=== PATIENT | female | born 1950 | race Caucasian/White ===

== ENCOUNTER 2017-11-18 08:57 | Day surgery (SDC) | payer MEDICARE, BC ==
[2017-11-17 09:14] VITALS: BMI 39.4
[~2017-11-18 08:57] MED LIST: INDOMETHACIN 50MG SUPPOSITORY RECTAL ONE; LACTATED RINGERS 1,000 ML IV SCH
[2017-11-18 09:41] VITALS: RESP 18; TEMP 98
[2017-11-18] MEDS ORDERED: LACTATED RINGERS 1,000 ML IV ONE ×2 (09:41)
[2017-11-18] MEDS: LEVOFLOXACIN 500MG-D5W PMX 500 MG in DEXTROSE/WATER 1 100ML.BAG IVPB ONE ×2 (09:56→12:00)
[2017-11-18] MEDS ORDERED: PROPOFOL 10 MG/ML 20 ML VIAL IV ONE (12:10)
[2017-11-18] MEDS ORDERED: fentaNYL (PF) 50 MCG/ML 2 ML AMP ONE (12:10)
[2017-11-18] MEDS ORDERED: MIDAZOLAM 2 MG/2 ML VIAL ONE (12:10)
[2017-11-18] MEDS ORDERED: LIDOCAINE 1% INJ 10MG/ML (20 ML MDV) ONE (12:10)
[2017-11-18] MEDS ORDERED: GLYCOPYRROLATE 0.2 MG/ML 2 ML VIAL ONE (12:10)
[2017-11-18] MEDS ORDERED: IOHEXOL 300 MG/ML 50 ML BOTTLE MISCELLANE ONE (12:34)
--- NOTE | 2017-11-18 12:36 | P.PCN ---
Date of Procedure: 11/18/17 Procedure(s) Performed: Brief history: Patient is a 67 year-old pleasant lady scheduled for an ERCP as part of evaluation of abdominal pain for the last 2 days' duration. 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 The last ERCP was done in March 2016. The patient has been maintained on Actigall 300 mg twice daily for almost 2 years. Procedure performed: ERCP with CBD stone extraction Preoperative diagnoses: Abdominal pain/history of recurrent CBD stones IV sedation per anesthesia: Procedure: After informed consent was obtained from the patient and after the risks benefits and complications including bleeding perforation and pancreatitis explained in detail the patient was brought into the endoscopy unit. The patient was placed in prone position and IV conscious sedation was administered by anesthesia under continuous monitoring. The Olympus side-viewing duodenoscope was then inserted into the mouth and esophagus intubated without any difficulty. The scope was gradually advanced into the stomach and duodenum. The major papilla was identified without any difficulty. The previous biliary stent enterotomy site was visualized which was widely patent and measured at least 1 cm in diameter. The common bile duct was cannulated without any difficulty and upon injection of the dye the common bile duct appeared very dilated measuring at least 2 cm in diameter and serpiginous and tortuous. There were multiple filling defects that were noted in the proximal and mid common bile duct. At this time a 15 mm balloon was passed into the proximal CBD and gently suite and multiple stones were seen exiting the ampulla with thick sludge. This maneuver was repeated until clear bile was flowing. Occlusion: Gen. was performed and no other filling defects were identified. At this time the procedure was terminated and the patient tolerated the procedure well. The pancreatic duct was intentionally not cannulated during the Procedure. Impression: Dilated common bile duct with multiple filling defects status post CBD stone extraction as described above Pancreatic duct not cannulated intentionally Recommendations: The findings of this examination were discussed with the patient as well as a family. She will continue with Actigall 300 mg twice daily. She was advised to follow up in office in 6 months or sooner if she has any recurrent abdominal pain..
--- NOTE | 2017-11-18 13:09 | FL ---
Fluoroscopy History: ERCP 2MIN [address] VELARDE 2 IMAGES SCANNED ERCP
[2017-11-18 13:24] VITALS: BP 130/78; PULSE 81
== END 2017-11-18 13:58 | disposition home or self-care (01) ==
LOC: ORWHC2ENDO 08:57
PROVIDERS: ATTEND Internal Medicine Gastroenterology
DX: K80.50 Calculus of bile duct without cholangitis or cholecystitis without obstruction (principal); Q44.5 Other congenital malformations of bile ducts; E66.9 Obesity, unspecified; Z68.39 Body mass index [BMI] 39.0-39.9, adult; K21.9 Gastro-esophageal reflux disease without esophagitis; Z79.899 Other long term (current) drug therapy
CPT/HCPCS: 74328; 43264; J2250; J1956; J2001; J3010; J2704; Q9967; 43277

== ENCOUNTER 2022-01-24 11:42 | Day surgery (SDC) | payer MEDICARE, BC ==
[~2022-01-24 11:42] MED LIST changes: -LACTATED RINGERS 1,000 ML IV SCH; +LEVOFLOXACIN 500MG-D5W PMX 500 MG in DEXTROSE/WATER 1 100ML.BAG IVPB STA
[2022-01-24] MEDS ORDERED: LACTATED RINGERS 1,000 ML IV ONE (12:37)
[2022-01-24 12:47] VITALS: TEMP 97.2
[2022-01-24] MEDS ORDERED: ONDANSETRON 4 MG/2 ML VIAL ONE (12:51)
[2022-01-24] MEDS ORDERED: ONDANSETRON 4 MG/2 ML VIAL IVP ONE (12:54)
[2022-01-24] MEDS ORDERED: DEXAMETHASONE SOD PHOSPHATE 4 MG/ML 1 ML VIAL IVP ONE (12:54)
[2022-01-24 13:18] LABS: Basophils # (A) 0.1 k/uL (0-0.2); Basophils % (A) 1 %; Eosinophils # (A) 0.1 k/uL (0-0.7); Eosinophils % (A) 1 %; HCT 38.5 % (34.0-46.0); HGB 12.5 gm/dL (11.4-16.0); Lymphocytes # (A) 0.9 k/uL (1.0-4.8); Lymphocytes % (A) 12 %; MCH 27.6 pg (25.0-35.0); MCHC 32.5 g/dL (31.0-37.0); Mean Platelet Volume 6.9; Monocytes # (A) 0.3 k/uL (0-1.0); Monocytes % (A) 5 %; Neutrophils # (A) 5.6 k/uL (1.3-7.7); Neutrophils % (A) 79 %; Platelet Count 437 k/uL (150-450); RBC 4.53 m/uL (3.80-5.40); WBC 7.1 k/uL (3.8-10.6)
[2022-01-24 13:31] LABS: INR 0.9 (<1.2); Partial Thromboplastin Time 23.2 sec (22.0-30.0); Prothrombin Time 10.1 sec (9.0-12.0)
[2022-01-24 13:33] LABS: ALT 15 U/L (4-34); AST 23 U/L (14-36); African American GFR (CKD) >90 (>60 ml/min/1.73 sqM); Albumin 4.3 g/dL (3.5-5.0); Alkaline Phosphatase 130 U/L (38-126); Anion Gap 7 mmol/L; Blood Urea Nitrogen 11 mg/dL (7-17); Carbon Dioxide 30 mmol/L (22-30); Chloride 102 mmol/L (98-107); Glucose 108 mg/dL (74-99); Non-African American GFR(CKD) 90 (>60 ml/min/1.73 sqM); Potassium 4.1 mmol/L (3.5-5.1); Sodium 139 mmol/L (137-145); Total Bilirubin 0.6 mg/dL (0.2-1.3); Total Protein 7.7 g/dL (6.3-8.2)
[2022-01-24] MEDS ORDERED: KETAMINE 10 MG/ML 20 ML VIAL ONE (14:12)
[2022-01-24] MEDS ORDERED: PROPOFOL 10 MG/ML 20 ML VIAL IV ONE (14:12)
[2022-01-24] MEDS ORDERED: GLYCOPYRROLATE 0.2 MG/ML 2 ML VIAL ONE (14:12)
[2022-01-24] MEDS ORDERED: LIDOCAINE 2% INJ 20 MG/ML (2 ML VIAL) ONE (14:12)
[2022-01-24] MEDS ORDERED: IOPAMIDOL-300 50ML BTL MISCELLANE ONE (14:22)
--- NOTE | 2022-01-24 14:36 | P.PCN ---
Date of Procedure: 01/24/22 Procedure(s) Performed: Brief history: Patient is a 71 year-old pleasant lady scheduled for an ERCP as part of evaluation of abdominal pain that started last night. Patient has history of recurrent common bile duct stones for which she underwent multiple ERCP for CBD stone extraction in the last one was in June 2020. She started experiencing severe right upper quadrant and epigastric pain last night. Labs from today show normal LFTs. She has been maintained on Actigall 300 mg twice daily for several years. Procedure performed: ERCP with CBD balloon stone extraction Preoperative diagnoses: History of recurrent CBD stones/severe right upper quadrant abdominal pain since last night IV sedation per anesthesia: Procedure: After informed consent was obtained from the patient and after the risks benefits and complications including bleeding perforation and pancreatitis explained in detail the patient was brought into the endoscopy unit. The patient was placed in prone position and IV conscious sedation was administered by anesthesia under continuous monitoring. The Olympus side-viewing duodenoscope was then inserted into the mouth and esophagus intubated without any difficulty. The scope was gradually advanced into the stomach and duodenum. The major papilla was identified without any difficulty. 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 The common bile duct was cannulated using the 15 mm balloon catheter and up the injection of the dye the common bile duct appeared dilated measuring 2 cm in diameter. There was few filling defects identified. The balloon was inflated and gently withdrawn and IV stones exiting the ampulla along with significant amount of sludge. This maneuver was performed several times until the bile appeared clear and no more filling defects were noted. Occlusion cholangiogram was performed and I could not see any other filling defects in July procedure was terminated. The pancreatic duct was intentionally not cannulated. Impression: Dilated common bile duct stent 2 cm in diameter with filling defects status post balloon stone and sludge extraction as described above Pancreatic duct intentionally not cannulated Recommendations: The findings of this examination were discussed with the patient as well as a family. She'll be observed in the family and if she is doing well she'll be discharged home with outpatient follow-up in 2-3 weeks.
[2022-01-24 15:15] VITALS: BP 144/86; PULSE 88; RESP 16
--- NOTE | 2022-01-24 15:23 | FL ---
EXAMINATION TYPE: FL ERCP DATE OF EXAM: 01/24/2022 CLINICAL HISTORY: CBD stone TECHNIQUE: Fluoroscopy. COMPARISON: None. FINDINGS: Fluoroscopic guidance was provided during ERCP procedure performed by Dr. Candelario. A total of 60 seconds of fluoroscopic time was utilized during the procedure and 1 spot intraoperative image acquired. Images acquired shows dilated CBD with abrupt cut off. Please refer to procedure note for f urther details. IMPRESSION: As Above.
== END 2022-01-24 15:32 | disposition home or self-care (01) ==
LOC: ORWHC2ENDO 11:42
PROVIDERS: ATTEND Internal Medicine Gastroenterology
DX: K80.50 Calculus of bile duct without cholangitis or cholecystitis without obstruction (principal)
CPT/HCPCS: 43264; 80053; 85025; 85610; 85730; 74330; J1100; J2405; J1956; J2704; Q9967; J2001

== ENCOUNTER 2022-06-13 11:08 | Day surgery (SDC) | payer MEDICARE, BC ==
[2022-06-11 08:49] VITALS: BMI 38.2
[~2022-06-13 11:08] MED LIST changes: -INDOMETHACIN 50MG SUPPOSITORY RECTAL ONE; +LACTATED RINGERS 1,000 ML IV SCH; -LEVOFLOXACIN 500MG-D5W PMX 500 MG in DEXTROSE/WATER 1 100ML.BAG IVPB STA
[2022-06-13] MEDS ORDERED: INDOMETHACIN 50MG SUPPOSITORY RECTAL ONE (11:40)
[2022-06-13] MEDS ORDERED: LEVOFLOXACIN 500MG-D5W PMX 500 MG in DEXTROSE/WATER 1 100ML.BAG IVPB ONE (11:40)
[2022-06-13 11:50] VITALS: TEMP 98.1
[2022-06-13 12:25] LABS: Basophils # (A) 0.1 k/uL (0-0.2); Basophils % (A) 1 %; Eosinophils # (A) 0.1 k/uL (0-0.7); Eosinophils % (A) 1 %; HCT 37.3 % (34.0-46.0); HGB 12.5 gm/dL (11.4-16.0); Lymphocytes % (A) 13 %; MCH 27.9 pg (25.0-35.0); MCHC 33.6 g/dL (31.0-37.0); MCV 82.9 fL (80.0-100.0); Mean Platelet Volume 7.6; Monocytes # (A) 0.3 k/uL (0-1.0); Monocytes % (A) 4 %; Neutrophils % (A) 79 %; Platelet Count 322 k/uL (150-450); RDW 14.1 % (11.5-15.5); WBC 7.6 k/uL (3.8-10.6)
[2022-06-13 12:38] LABS: ALT 33 U/L (4-34); AST 31 U/L (14-36); African American GFR (CKD) >90 (>60 ml/min/1.73 sqM); Albumin 4.3 g/dL (3.5-5.0); Alkaline Phosphatase 135 U/L (38-126); Anion Gap 12 mmol/L; Blood Urea Nitrogen 9 mg/dL (7-17); Calcium 9.2 mg/dL (8.4-10.2); Carbon Dioxide 25 mmol/L (22-30); Chloride 103 mmol/L (98-107); Glucose 101 mg/dL (74-99); Non-African American GFR(CKD) >90 (>60 ml/min/1.73 sqM); Sodium 140 mmol/L (137-145); Total Bilirubin 0.8 mg/dL (0.2-1.3); Total Protein 7.4 g/dL (6.3-8.2)
[2022-06-13 12:47] LABS: Prothrombin Time 10.8 sec (9.0-12.0)
[2022-06-13] MEDS ORDERED: KETAMINE 10 MG/ML 20 ML VIAL ONE (12:50)
[2022-06-13] MEDS ORDERED: fentaNYL (PF) 50 MCG/ML 2 ML AMP ONE (12:50)
[2022-06-13] MEDS ORDERED: LIDOCAINE 2% INJ 20 MG/ML (2 ML VIAL) ONE (12:50)
[2022-06-13] MEDS ORDERED: GLYCOPYRROLATE 0.2 MG/ML 2 ML VIAL ONE (12:50)
[2022-06-13] MEDS ORDERED: PROPOFOL 10 MG/ML 20 ML VIAL IV ONE (12:50)
[2022-06-13] MEDS ORDERED: MIDAZOLAM 2 MG/2 ML VIAL ONE (12:50)
[2022-06-13 12:55] LABS: Potassium 4.4 mmol/L (3.5-5.1)
[2022-06-13] MEDS ORDERED: IOPAMIDOL-300 50ML BTL IV ONE (13:41)
--- NOTE | 2022-06-13 13:45 | P.PCN ---
Date of Procedure: 06/13/22 Procedure(s) Performed: Brief history: Patient is a 72 year-old pleasant lady scheduled for an ERCP as part of evaluation of abdominal pain for the last 1 week duration. She has history of recurrent CBD stones for which she needs ERCP with CBD stone extraction, the last was done in 01/2022. She started having severe epigastric and right upper quadrant abdominal pain that lasted for a few hours and subsided. Again 3 years ago she had similar episodes and hence she is scheduled for an ERCP for CBD stone extraction. The patient had multiple ERCPs in the past . Procedure performed: ERCP with CBD stone extraction Preoperative diagnoses: Recurrent common bile duct stone IV sedation per anesthesia: Procedure: After informed consent was obtained from the patient and after the risks benefits and complications including bleeding perforation and pancreatitis explained in detail the patient was brought into the endoscopy unit. The patient was placed in prone position and IV conscious sedation was administered by anesthesia under continuous monitoring. The Olympus side-viewing duodenoscope was then inserted into the mouth and esophagus intubated without any difficulty. The scope was gradually advanced into the stomach and duodenum. The major papilla was identified without any difficulty. There was evidence of previous biliary sphincterotomy which was widely patent. The common bile duct cannulated using balloon catheter and dye was injected. The common bile duct measured at least 2 cm in diameter and a 2 filling defects identified measuring at least 1-1.5 cm in size. At this using 11.5 mm and 15 mm balloon both the stones was extracted with some difficulty. Significant amount of sludge was also extracted. Occlusion cholangiogram was performed and no other filling defects wear noted.. At this time the procedure was terminated and the patient tolerated the procedure well. The pancreatic duct was intentionally not cannulated. Impression: Dilated common bile duct with 2 filling defects measuring 1-1.5 cm in size status post balloon stone extraction as described above Pancreatic duct intentionally not cannulated. Recommendations: The findings of this examination were discussed with the patient as well as a family. She was advised to continue with Actigall daily an d she'll be seen in office in 4-6 weeks.
--- NOTE | 2022-06-13 14:49 | FL ---
Intraoperative/procedural fluoroscopic services were provided. Total fluoroscopy time is 53 seconds w ith a total of 13 submitted images to PACS. Please see the operative/procedural note for further deta ils.
[2022-06-13 15:36] VITALS: BP 112/62; PULSE 70; RESP 20
== END 2022-06-13 16:03 ==
LOC: ORWHC2ENDO 11:08
PROVIDERS: ATTEND Internal Medicine Gastroenterology
DX: K80.50 Calculus of bile duct without cholangitis or cholecystitis without obstruction (principal); J45.909 Unspecified asthma, uncomplicated; E66.9 Obesity, unspecified
CPT/HCPCS: 80053; 85025; 85610; 74330; 43277; 43264; J2250; J3010; J2704; Q9967; J2001

== ENCOUNTER 2024-04-11 15:00 | Observation (INO) | payer MEDICARE, BC ==
[~2024-04-11 15:00] MED LIST changes: +HYDROmorphone 1 MG/ML 1 ML SYRINGE ONE; +KETOROLAC 15 MG/ML 1 ML VIAL ONE; -LACTATED RINGERS 1,000 ML IV SCH
[2024-04-12] MEDS ORDERED: ONDANSETRON 4 MG/2 ML VIAL ONE (12:57)
[2024-04-12] MEDS ORDERED: LIDOCAINE 1% INJ 10MG/ML (20 ML MDV) ONE (12:57)
[2024-04-12] MEDS ORDERED: GLYCOPYRROLATE 0.2 MG/ML 2 ML VIAL ONE (12:57)
[2024-04-12] MEDS ORDERED: KETAMINE HCL IN 0.9 % NACL 50 MG/5 ML SYRINGE ONE (12:57)
[2024-04-12] MEDS ORDERED: PROPOFOL 10 MG/ML 20 ML VIAL IV ONE (12:57)
[2024-04-12] MEDS ORDERED: MIDAZOLAM 2 MG/2 ML VIAL ONE (12:57)
[2024-04-12] MEDS ORDERED: DEXAMETHASONE SOD PHOSPHATE 4 MG/ML 1 ML VIAL ONE (12:57)
[2024-04-12] MEDS ORDERED: PIPERACILLIN-TAZOBACTAM 3.375 GM VIAL ONE (20:27)
[2024-04-12] MEDS ORDERED: SYMBICORT 160-4.5 MCG INHALER INHALATION ONE (23:59)
[2024-04-12] MEDS ORDERED: SODIUM CHLORIDE 0.9% 100 ML BAG ONE (23:59)
[2024-04-12] MEDS ORDERED: ALBUTEROL HFA INHALER INHALATION ONE (23:59)
[2024-04-13] MEDS ORDERED: PIPERACILLIN-TAZOBACTAM 3.375 GM VIAL ONE ×2 (04:33→12:40)
[2024-04-13] MEDS ORDERED: ENOXAPARIN 40 MG/0.4 ML SYRINGE SQ ONE (09:56)
[2024-04-13] MEDS ORDERED: PANTOPRAZOLE 40 MG TABLET PO ONE (09:56)
[2024-04-13] MEDS ORDERED: SODIUM CHLORIDE 0.9% 100 ML BAG ONE (12:00)
[2024-04-13] MEDS ORDERED: INDOMETHACIN 100 MG SUPPOSITORY RECTAL ONE (12:00)
--- NOTE | 2024-04-27 16:40 | OP ---
OPERATIVE REPORT DATE OF SERVICE : 04/12/2024 BRIEF HISTORY: The patient is a 74-year-old pleasant white female, admitted to the hospital with severe right upper quadrant abdominal pain associated with fever, chills for the last 4 days' duration. Noted to have elevated LFTs and elevated bili at 2.1. She does have history of recurrent choledocholithiasis. She is hence scheduled for an ERCP with CBD stone extraction. PROCEDURE PERFORMED: ERCP with CBD stone extraction. PREOPERATIVE DIAGNOSE: Right upper quadrant abdominal pain, elevated LFTs and jaundice, rule out ascending cholangitis. ANESTHESIA: IV sedation per Anesthesia. DESCRIPTION OF PROCEDURE: After informed consent was obtained from the patient, she was brought into the endoscopy unit. She was placed in prone position. The Olympus CF-180 side-viewing duodenoscope was entered into the mouth. Esophagus intubated without any difficulty and was gradually advanced into the stomach and duodenum. The major papilla was identified without any difficulty and it was widely patent. There was a widely patent sphincterotomy site noted. I was able to cannulate the common bile duct without any difficulty and upon injection of the dye, it was dilated measuring 2 cm in diameter. There were multiple filling defects noted in the proximal CBD. At this time, using a 15 mm balloon catheter, I was able to extract at least 4 large stones all measuring between 1 to 1.5 cm in size with significant amount of sludge. This maneuver was repeated several times until the last occlusion cholangiogram did not show any other filling defects and the patient tolerated the procedure well. IMPRESSION: 1. Dilated common bile duct measuring 2 cm in size with multiple filling defects status post balloon stone extraction as described above. At least 4 large stones were extracted with significant number of sludge. 2. Pancreatic duct intentionally not cannulated. RECOMMENDATIONS: Findings of this examination were discussed with the patient as well as the family. At this time, she will be on a clear liquid diet, will continue on broad-spectrum antibiotics. Repeat labs in the morning. MMODL / IJN: [id number] /
--- NOTE | 2024-05-19 10:45 | FL ---
EXAMINATION TYPE: FL ERCP DATE OF EXAM: 05/03/2024 8:52 AM COMPARISON: Pre Operative Images if available both CT/MRI or plain film CLINICAL INDICATION: Female, 74 years old with history of CBD STONE ERCP; TECHNIQUE: FL ERCP, multiple fluoroscopic images provided for procedure. Total fluoroscopy time: 157 seconds Total submitted images to PACS: 6 DAP: 1.92 mGym2 Gycm2 uGym2 cGycm2 or equivalent. IMPRESSION: 1. Report was generated for administrative purposes only. 2. Please see the operative/procedural note for further details. [facility], , 05/19/2024 10:43 AM
== END 2024-04-13 17:30 | disposition home or self-care (01) ==
LOC: 6NMEDSUR 15:00
PROVIDERS: ADMIT Hospitalist; ATTEND Hospitalist
DX: K80.51 Calculus of bile duct without cholangitis or cholecystitis with obstruction (principal); J45.40 Moderate persistent asthma, uncomplicated; G47.33 Obstructive sleep apnea (adult) (pediatric); M15.9 Polyosteoarthritis, unspecified; K21.9 Gastro-esophageal reflux disease without esophagitis; Z79.51 Long term (current) use of inhaled steroids; Z79.899 Other long term (current) drug therapy; Z90.49 Acquired absence of other specified parts of digestive tract
CPT/HCPCS: 43260; 74330; 94640; 96374; 96375; 99284

== ENCOUNTER → 2024-04-20 | Outpatient (CLI) | payer MEDICARE, BC ==
[2024-04-20 18:22] LABS: Basophils # (A) 0.08 X 10*3/uL (0.00-0.10); Eosinophils # (A) 0.23 X 10*3/uL (0.04-0.35); Eosinophils % (A) 2.8 %; HCT 38.5 % (37.2-46.3); HGB 12.1 g/dL (12.0-15.0); Lymphocytes # (A) 1.39 X 10*3/uL (0.90-5.00); Lymphocytes % (A) 17.1 %; MCH 28.3 pg (27.0-32.0); MCHC 31.4 g/dL (32.0-37.0); MCV 90.2 FL (80.0-97.0); Mean Platelet Volume 9.8 FL (9.5-12.2); Monocytes # (A) 0.72 X 10*3/uL (0.20-1.00); Monocytes % (A) 8.9 %; NRBC Per 100 WBC 0 X 10*3/uL (0.00-0.01); Neutrophils # (A) 5.63 X 10*3/uL (1.80-7.70); Neutrophils % (A) 69.2 %; Platelet Count 356 X 10*3/uL (140-440); RBC 4.27 X 10*6/uL (4.10-5.20); RDW 13.7 % (11.5-14.5); WBC 8.13 X 10*3/uL (4.50-10.00)
[2024-04-20 19:30] LABS: Carbon Dioxide 28.4 mmol/L (21.6-31.8); Chloride 105 mmol/L (96-109); Glucose 116 mg/dL (70-110); Potassium 3.8 mmol/L (3.5-5.5); Sodium 143 mmol/L (135-145)
[2024-04-20 19:31] LABS: ALT 21 U/L (8-44); AST 19 U/L (13-35); Albumin 4.1 g/dL (3.8-4.9); Albumin/Globulin Ratio 1.71 Ratio (1.60-3.17); Alkaline Phosphatase 110 U/L (41-126); Globulin 2.4 g/dL (1.6-3.3); Total Bilirubin 0.3 mg/dL (0.3-1.2); Total Protein 6.5 g/dL (6.2-8.2)
== END | disposition home or self-care (01) ==
LOC: LABWHC1 14:44
PROVIDERS: ATTEND Internal Medicine Gastroenterology
DX: K80.50 Calculus of bile duct without cholangitis or cholecystitis without obstruction (principal)
CPT/HCPCS: 36415; 80053; 85025